=== PATIENT | male | born 1955 | race Caucasian/White ===

== ENCOUNTER 2018-12-31 18:53 | Emergency (ER) | payer MEDICARE, OTHER ==
[2018-12-31 22:04] LABS: ABSOLUTE BASOPHILS # (AUTO) 0.1 10^3/uL (0.0-0.2); ABSOLUTE EOSINOPHILS # (AUTO) 0.1 10^3/uL (0.0-0.6); ABSOLUTE LYMPHOCYTES (AUTO) 1.2 10^3/uL (0.5-4.7); ABSOLUTE MONOCYTES (AUTO) 0.8 10^3/uL (0.1-1.4); ABSOLUTE NEUT (AUTO) 8.3 10^3/uL (1.7-8.2); BASOPHILS % (AUTO) 0.7 % (0-2); EOSINOPHILS % (AUTO) 1.3 % (0-6); HEMATOCRIT 52.3 % (37.9-51.0); HEMOGLOBIN 18.3 g/dL (13.5-17.0); LYMPHOCYTES % (AUTO) 11.3 % (13-45); MEAN CORPUSCULAR HEMOGLOBIN 32.9 pg (27.0-33.4); MEAN CORPUSCULAR VOLUME 94 fl (80-97); MONOCYTES % (AUTO) 7.6 % (3-13); PLATELET COUNT 259 10^3/uL (150-450); RED BLOOD COUNT 5.58 10^6/uL (4.35-5.55); RED CELL DISTRIBUTION WIDTH 14.8 % (11.5-14.0); SEGMENTED NEUTROPHILS % (AUTO) 79.1 % (42-78); TOTAL CELLS COUNTED % (AUTO) 100 %; WHITE BLOOD COUNT 10.5 10^3/uL (4.0-10.5)
[2018-12-31 22:11] LABS: APPEARANCE,URINE CLOUDY; BILIRUBIN,URINE NEGATIVE (NEGATIVE); COLOR,URINE AMBER; GLUCOSE, URINE NEGATIVE (NEGATIVE); KETONES,URINE NEGATIVE (NEGATIVE); LEUKOCYTE ESTERASE,URINE NEGATIVE (NEGATIVE); NITRITE,URINE NEGATIVE (NEGATIVE); PROTEIN,URINE 100 mg/dL (NEGATIVE); URINE SPECIFIC GRAVITY 1.018; UROBILINOGEN,URINE NEGATIVE mg/dL (<2.0)
--- NOTE | 2018-12-31 22:26 | ER Document Report ---
ED Medical Screen (RME) - General Chief Complaint: Possible Kidney Stone Stated Complaint: FLANK PAIN Time Seen by Provider: 12/31/18 22:25 Primary Care Provider: MICHOACANO DUNN MD [Primary Care Provider] - Follow up as needed Notes: She is a 63-year-old male who presents to the department with a chief complaint of flank pain. His flank pain is mainly on the left side, but he feels it in his lower back also. This started around 2:00 this afternoon. At home he had some hematuria, which prompted him to come to the emergency department. He has history of kidney stones in the past. TRAVEL OUTSIDE OF THE [place] IN LAST 30 DAYS: No - Related Data Allergies/Adverse Reactions: No Known Allergies Allergy (Verified 03/10/16 19:39) Past Medical History - Past Medical History Cardiac Medical History: Reports: Hx Coronary Artery Disease, Hx Hypertension Malignancy Medical History: Reports Hx Lymphoma - Non-Hodgkin's GI Medical History: Reports: Hx Crohn's Disease Psychiatric Medical History: Reports: Hx Depression Past Surgical History: Reports: Hx Coronary Artery Bypass Graft - 4 way, Hx Herniorrhaphy, Hx Tonsillectomy - Immunizations Hx Diphtheria, Pertussis, Tetanus Vaccination: No Physical Exam - Vital signs Vitals: Temp Pulse Resp BP Pulse Ox 98.1 F 81 20 152/87 H 92 12/31/18 19:18 12/31/18 19:18 12/31/18 19:18 12/31/18 19:18 12/31/18 19:18 - Back Back: CVA tenderness - Bilateral Course - Vital Signs Vital signs: Temp Pulse Resp BP Pulse Ox 98.1 F 81 20 152/87 H 92 12/31/18 19:18 12/31/18 19:18 12/31/18 19:18 12/31/18 19:18 12/31/18 19:18 - Laboratory Result Diagrams: 12/31/18 21:25 12/31/18 21:25 Laboratory results interpreted by me: 12/31/18 12/31/18 21:25 21:25 RBC 5.58 H Hgb 18.3 H Hct 52.3 H RDW 14.8 H Seg Neutrophils % 79.1 H Lymphocytes % 11.3 L Absolute Neutrophils 8.3 H Urine Protein 100 H Urine Blood LARGE H Doctor's Discharge - Discharge Referrals: MICHOACANO DUNN MD [Primary Care Provider] - Follow up as needed
[2018-12-31 22:29] LABS: ALANINE AMINOTRANSFERASE 32 U/L (21-72); ALBUMIN 4.7 g/dL (3.5-5.0); ALKALINE PHOSPHATASE 86 U/L (38-126); ANION GAP 9 (5-19); ASPARTATE AMINO TRANSFERASE 34 U/L (17-59); BILIRUBIN,DIRECT 0.2 mg/dL (0.0-0.4); BILIRUBIN,TOTAL 1.1 mg/dL (0.2-1.3); BLOOD UREA NITROGEN 17 mg/dL (7-20); CALCIUM 11.4 mg/dL (8.4-10.2); CARBON DIOXIDE 29 mmol/L (22-30); CHLORIDE 100 mmol/L (98-107); GLUCOSE 85 mg/dL (75-110); LIPASE 44.3 U/L (23-300); POTASSIUM 5.6 mmol/L (3.6-5.0); SODIUM 137.8 mmol/L (137-145); TOTAL PROTEIN 7.8 g/dL (6.3-8.2)
--- NOTE | 2018-12-31 23:07 | RADIOLOGY REPORT (SQ) ---
EXAM DESCRIPTION: CT ABDOMEN WITHOUT IV CONTRAST COMPLETED DATE/TME: 12/31/2018 22:27 CLINICAL HISTORY: 63 years, Male, groin and back pain, HEMATURIA. eval kidney stone COMPARISON: None. TECHNIQUE: [id number] Images stored on PACS. All CT scanners at this facility use dose modulation, iterative reconstruction, and/or weight based dosing when appropriate to reduce radiation dose to as low as reasonably achievable (ALARA). [facility]: Dose Right [facility]: CareDose [facility]: Dose Right [facility]: Teradose 4D [facility]: [employer] LIMITATIONS: None. FINDINGS: Limited evaluation of the lung bases is unremarkable. Osseous structures are grossly intact. Probable fatty infiltrative change to the liver. Small hiatal hernia. The spleen, adrenal glands, pancreas are unremarkable. Post surgical changes of the anterior abdominal wall. The gallbladder is contracted. Cholelithiasis. Moderate to severe atheromatous changes. Mild left-sided hydronephrosis and hydroureter secondary to an approximately 1 to 2 mm left UVJ calculus. No gross evidence for bowel obstruction. No other discrete urinary tract calculi. The appendix is not seen. No pericecal inflammation. No free air or free fluid. IMPRESSION: Mild left-sided hydronephrosis and hydroureter secondary to an approximately 1 to 2 mm left UVJ calculus. Fatty infiltrative change to the liver. Cholelithiasis. Small hiatal hernia. Post surgical changes of the anterior abdominal wall. TECHNICAL DOCUMENTATION: Quality ID # [id number]: Final reports with documentation of one or more dose reduction techniques (e.g., Automated exposure control, adjustment of the mA and/or kV according to patient size, use of iterative reconstruction technique) copyright 2011 [employer]- All Rights Reserved
[2019-01-01] MEDS ORDERED: FENTANYL CITRATE INJ/PF 100 MCG/2 ML AMPUL IV ONE (00:28)
[2019-01-01] MEDS ORDERED: ONDANSETRON HCL INJ/PF 4 MG/2 ML SDV IV ONE (00:28)
--- NOTE | 2019-01-01 00:33 | ER Document Report ---
ED General - General Chief Complaint: Possible Kidney Stone Stated Complaint: FLANK PAIN Time Seen by Provider: 12/31/18 22:25 Primary Care Provider: MICHOACANO DUNN MD [ACTIVE STAFF] - Follow up as needed Mode of Arrival: Ambulatory Information source: Patient Notes: 63-year-old male presents emergency department with complaints of left flank pain. Patient states that the pain started up about 230. He describes it as initially a dull aching sensation located in the left flank with radiation into the left lower quadrant. He states that this began becoming sharp and stabbing. He does have a history of kidney stones. He states that this feels similar to previous stones. He has had some associated hematuria. He denies any nausea, vomiting, diarrhea, constipation. Patient denies any alleviating or exacerbating factors. Patient states that his previous stones have passed on their own. TRAVEL OUTSIDE OF THE [place] IN LAST 30 DAYS: No - HPI Onset: This afternoon Onset/Duration: Sudden Quality of pain: Achy, Stabbing, Throbbing Severity: Severe Associated symptoms: None Exacerbated by: Denies Relieved by: Denies Similar symptoms previously: Yes Recently seen / treated by doctor: No - Related Data Allergies/Adverse Reactions: No Known Allergies Allergy (Verified 03/10/16 19:39) Past Medical History - General Information source: Patient - Social History Smoking Status: Current Every Day Smoker Frequency of alcohol use: None Drug Abuse: None Family History: Reviewed & Not Pertinent Patient has suicidal ideation: No Patient has homicidal ideation: No - Past Medical History Cardiac Medical History: Reports: Hx Coronary Artery Disease, Hx Hypertension Renal/ Medical History: Reports: Hx Kidney Stones. Denies: Hx Peritoneal Dialysis Malignancy Medical History: Reports Hx Lymphoma - Non-Hodgkin's GI Medical History: Reports: Hx Crohn's Disease Psychiatric Medical History: Reports: Hx Depression Past Surgical History: Reports: Hx Abdominal Surgery - exploratory, Hx Bowel Surgery - bowel resection 1995, Hx Cardiac Surgery - quadruple bypass, Hx Coronary Artery Bypass Graft - 4 way, Hx Herniorrhaphy, Hx Orthopedic Surgery - L knee replacement, bilateral hand, Hx Tonsillectomy - Immunizations Hx Diphtheria, Pertussis, Tetanus Vaccination: No Review of Systems - Review of Systems Constitutional: No symptoms reported EENT: No symptoms reported Cardiovascular: No symptoms reported Respiratory: No symptoms reported Gastrointestinal: Abdominal pain Genitourinary: Flank pain, Hematuria Male Genitourinary: No symptoms reported Musculoskeletal: No symptoms reported Skin: No symptoms reported Hematologic/Lymphatic: No symptoms reported Neurological/Psychological: No symptoms reported -: Yes All other systems reviewed and negative Physical Exam - Vital signs Vitals: Temp Pulse Resp BP Pulse Ox 98.1 F 81 20 152/87 H 92 12/31/18 19:18 12/31/18 19:18 12/31/18 19:18 12/31/18 19:18 12/31/18 19:18 - Notes Notes: PHYSICAL EXAMINATION: GENERAL: Well-appearing, well-nourished and in no acute distress. HEAD: Atraumatic, normocephalic. EYES: Pupils equal round and reactive to light, extraocular movements intact, sclera anicteric, conjunctiva are normal. ENT: Nares patent, oropharynx clear without exudates. Moist mucous membranes. NECK: Normal range of motion, supple without lymphadenopathy LUNGS: Breath sounds clear to auscultation bilaterally and equal. No wheezes rales or rhonchi. HEART: Regular rate and rhythm without murmurs ABDOMEN: Soft, tenderness to palpation of the left flank and left lower quadra nt. No rebound or guarding. Normal active bowel sounds. Musculoskeletal: Normal range of motion, no pitting or edema. No cyanosis. NEUROLOGICAL: Cranial nerves grossly intact. Normal speech, normal gait. Normal sensory, motor exams PSYCH: Normal mood, normal affect. SKIN: Warm, Dry, normal turgor, no rashes or lesions noted. Course - Re-evaluation Re-evalutation: 01/01/19 00:31 Labs and imaging obtained. Patient's urine is significant for hematuria. CT of the abdomen pelvis was done that shows a 1-2 mm stone at the left UVJ. I will discharge the patient home with a prescription for Zofran and Lutcher. I instructed the patient to follow-up with his primary care physician this week, to take the medication prescribed as directed, and to return for any worsening symptoms. Patient is agreeable with plan of care. - Vital Signs Vital signs: Temp Pulse Resp BP Pulse Ox 98.1 F 81 20 152/87 H 92 12/31/18 19:18 12/31/18 19:18 12/31/18 19:18 12/31/18 19:18 12/31/18 19:18 - Laboratory Result Diagrams: 12/31/18 21:25 12/31/18 21:25 Laboratory results interpreted by me: 12/31/18 12/31/18 12/31/18 21:25 21:25 21:25 RBC 5.58 H Hgb 18.3 H Hct 52.3 H RDW 14.8 H Seg Neutrophils % 79.1 H Lymphocytes % 11.3 L Absolute Neutrophils 8.3 H Potassium 5.6 H Calcium 11.4 H Urine Protein 100 H Urine Blood LARGE H Discharge - Discharge Clinical Impression: Kidney stone on left side Condition: Good Disposition: HOME, SELF-CARE Instructions: Kidney Stone ([facility]) Prescriptions: Hydrocodone/Acetaminophen [Lutcher 5-325 mg Tablet] 1 tab PO Q4 #5 tablet Ondansetron [Zofran Odt 4 mg Tablet] 1 tab PO Q4H PRN #15 tab.rapdis PRN Reason: For Nausea/Vomiting Tamsulosin HCl [Flomax 0.4 mg Cap.sr] 0.4 mg PO DAILY #7 cap.sr.24h Referrals: MICHOACANO DUNN MD [ACTIVE STAFF] - Follow up as needed
[2019-01-01] MEDS ORDERED: HYDROCODONE/ACETAMINOPHEN 5-325 MG (6 TAB/ER DISP) PO PRN (00:41)
[2019-01-01] MEDS ORDERED: NORMAL SALINE 1000 ML 1,000 ML IV ONE (00:56)
[2019-01-01] MEDS ORDERED: FUROSEMIDE INJ/PF 40 MG/4 ML SDV IV ONE (00:56)
[2019-01-01 02:45] VITALS: BP 140/80
--- NOTE | 2019-01-01 23:02 | EKG REPORT ---
SEVERITY:- ABNORMAL ECG - SINUS RHYTHM VS ATRIAL PACING FIRST DEGREE AV BLOCK PROBABLE INFERIOR INFARCT, OLD CONSIDER ANTERIOR INFARCT BORDERLINE T WAVE ABNORMALITIES LATERAL LEADS ARE ALSO INVOLVED : Confirmed by: Lazara Fall 01-Jan-2019 23:01:38
== END 2019-01-01 02:45 | disposition home or self-care (01) ==
LOC: ER 18:53
DX: N13.2 Hydronephrosis with renal and ureteral calculous obstruction (principal); E87.5 Hyperkalemia; R31.9 Hematuria, unspecified; F17.200 Nicotine dependence, unspecified, uncomplicated; I25.10 Atherosclerotic heart disease of native coronary artery without angina pectoris; I10 Essential (primary) hypertension; Z95.1 Presence of aortocoronary bypass graft
CPT/HCPCS: 93005; 99284; 96361; 96374; 36415; 83690; 85025; 80053; 81001; 76380; 93010; J1940; J7030; A9270